=== PATIENT | female | born 1940 | race Caucasian/White ===

== ENCOUNTER → 2017-05-02 | Outpatient (CLI) | payer MEDICARE, OTHER ==
[~2017-05-02] MED LIST: ACYCLOVIR 400400 MG PO; ADULT LOW DOSE81 MG PO; AMITRIPTYLINE; BENTYL; BENTYL 20 MG TA20 M1 PO; CEFTIN500 MG PO; CELEXA; CELEXA 20 MG TA20 M1 PO; CIPROFLOXACIN500 M1 PO; COLACE100 MG PO; CRESTOR; CRESTOR20 MG PO; ELAVIL 25 MG PO; ELIQUIS2.5 MG PO; FISHOIL; FLAGYL500 MG PO; FLONASE 0.05%50 MCG NASAL; FOLIC ACID; FOLIC ACID1 MG PO; LIPITOR 20 MG T20 M1 PO; MACROBID 100 M100 M2 PO; METAMUCIL0.52 GM PO; MOBIC15 MG PO; NORCO 7.5-3251 EACH PO; OXYCODONE HCL 55 MG PO; PROMETHAZINE/C118 ML PO; SUPER B WITH V1 EACH PO; SYNTHROID88 MCG PO; TRANSDERM-SCOP1 EACH TD; TYLENOL EXTRA500 MG PO; VITAMIN D32000 UNIT PO
== END ==
LOC: M.MRI 10:56
DX: S43.401A Unspecified sprain of right shoulder joint, initial encounter (principal); M75.101 Unspecified rotator cuff tear or rupture of right shoulder, not specified as traumatic; M19.011 Primary osteoarthritis, right shoulder; M75.51 Bursitis of right shoulder; X58.XXXA Exposure to other specified factors, initial encounter; Y93.89 Activity, other specified; Y92.89 Other specified places as the place of occurrence of the external cause; Y99.8 Other external cause status

== ENCOUNTER 2017-08-28 08:01 | Inpatient (IN) | payer MEDICARE, OTHER ==
[2017-08-17 08:59] LABS: APTT 23.7 Seconds (25.0-31.3); PROTIME 9.8 Seconds (9.20-11.50)
[2017-08-17 09:07] LABS: ALBUMIN 3.9 g/dL (3.4-5.0); CREATININE 0.8 mg/dL (0.6-1.3); POTASSIUM 3.5 mmol/L (3.5-5.1); TOTAL BILIRUBIN 0.7 mg/dL (<0.1-1.0); TOTAL PROTEIN 7.4 g/dL (6.4-8.2)
[2017-08-17 09:42] LABS: ESR (SEDRATE) 3 mm/hr (0-30)
[2017-08-17 09:44] LABS: ABSOLUTE BASOPHILS 0.1 thou/uL (0.0-0.2); ABSOLUTE EOSINOPHILS 0.2 thou/uL (0.0-0.7); ABSOLUTE LYMPHOCYTES 2.3 thou/uL (0.8-5.3); ABSOLUTE MONOCYTES 0.7 thou/uL (0.0-1.2); ABSOLUTE NEUTROPHILS 6.6 thou/uL (1.6-8.1); BASOPHILS 0.6 %; EOSINOPHILS 1.7 %; HEMATOCRIT 44.5 % (37.0-47.0); HEMOGLOBIN 15.2 gm/dL (12.0-15.0); LYMPHOCYTES 23.2 %; MCH 31.8 pg (26.0-34.0); MCHC 34.2 g/dL (28.0-37.0); NUCLEATED RBCS 0 /100WBC; PLATELET COUNT* 422 thou/uL (150-400); POLYS 67.5 %; RBC 4.78 mil/uL (4.20-5.00); RDW-CV 12.8 % (10.5-14.5); WBC 9.7 thou/uL (4.0-11.0)
--- NOTE | 2017-08-17 14:05 | EKG ---
[place] [address] ELECTROCARDIOGRAM REPORT Name: CHELO URBINA Room: PRE IN [facility]#: [id number] Admission: Attend Phys: Bruno Watson Discharge: Date of : 44 Report #: [id number] THIS REPORT FOR: //name// [facility] Test Date: 2017-08-17 Test Time: 09:07:06 Pat Name: CHELO URBINA Department: Room: Gender: F Table Cover Folder: : 1940 Requested By: Edwin May Order Number: [id number] Reading MD: Luis Miguel Oliva Measurements Intervals Hooker Rate: 63 P: 47 CO: 135 QRS: 48 QRSD: 102 T: 47 QT: 421 QTc: 431 Interpretive Statements Sinus rhythm Abnormal R-wave progression, early transition Nonspecific T abnormalities, anterior leads Compared to ECG 06/23/2012 20:43:38 Sinus tachycardia no longer present T-wave abnormality still present Electronically Signed On 08-17-2017 14:05:23 CDT by Luis Miguel Oliva [email or web address] <ELECTRONICALLY SIGNED> By: Luis Miguel Oliva MD, [facility] 08/17/17 1405 [id number] Luis Miguel Oliva MD, [facility] /EPI
[2017-08-18 02:10] LABS: GLYCOHEMOGLOBIN (HGB A1C) 5.5 % (4.8-5.6)
[~2017-08-28] VITALS: Ht 157.5 cm; Wt 61.2 kg
[~2017-08-28 08:01] MED LIST changes: -COLACE100 MG PO; -ELIQUIS2.5 MG PO; -MACROBID 100 M100 M2 PO; -OXYCODONE HCL 55 MG PO; -TYLENOL EXTRA500 MG PO
[2017-08-28] MEDS ORDERED: TYLENOL EXTRA500 MG PO (10:01)
[2017-08-28 10:30] VITALS: BP 128/76
[2017-08-28 15:00] VITALS: BP 135/66
[2017-08-28 16:27] VITALS: BP 126/65
--- NOTE | 2017-08-28 18:48 | NUR ---
ASSUMED CARES OF PT AT 1440 FROM PACU. PT TRK PER DR. TRAMMELL. PT IN BED, BED IN LOW LOCKED POSITION, CALL BUTTON AND PERSONAL ITEMS PLACED IN PT REACH. PT A&O X4, LCTAB, VSS ON 3L 02 NC NOT WORN AT HOME, PLACED ON IN PACU R/T DESTAT POST OP. PAIN CONTROLLED, NAUSEA DIFFICULT TO CONTROL WITH ZOFRAN AND SCOPOLAMINE PATCH BEHIND RIGHT EAR. PT GIVEN COLD MOIST CLOTHS ON HEAD AND NECK/FACE. PT TO AMBULATE EARLY. PT REMAINED IN BED THIS SHIFT POST OP R/T NAUSEA/VOMITING. PT LIVES WITH SON AND GRANDSON, SAFE ENVIRONMENT. SKIN INTACT, SCATTERED BRUISING AND SCARS. IV IN LFA 20 GAUGE INFUSING 1/2 NS 75 ML/HR, TOLERATING. ICE PACK ON RIGHT KNEE, CAREN HOSE AND CALF SCD'S IN PLACE/ACTIVE. VS Q4 HOURS FOR 24 HOURS THEN Q6 HOURS. LAST BM THIS MORNING PRIOR TO SURGERY. CONSULTS OT, PT, RT, DR. TRAMMELL, MEDICINE. REGULAR DIET. HOURLY ROUNDING COMPLETED. WILL GIVE REPORT TO FLOUR INSPECTOR FOR CONTINUED CARES.
[2017-08-29] VITALS: BP 115/65
[2017-08-29 03:56] LABS: HEMATOCRIT 35.8 % (37.0-47.0); HEMOGLOBIN 12.1 gm/dL (12.0-15.0); MCH 31.3 pg (26.0-34.0); MCHC 33.8 g/dL (28.0-37.0); MCV 92.7 fL (80.0-100.0); MPV 8.1 fl. (7.2-11.1); RBC 3.86 mil/uL (4.20-5.00); RDW-CV 12.7 % (10.5-14.5); WBC 20.1 thou/uL (4.0-11.0)
[2017-08-29 04:18] VITALS: BP 101/58
[2017-08-29 04:37] LABS: CREATININE 0.7 mg/dL (0.6-1.3); MAGNESIUM 1.8 mg/dL (1.8-2.4); POTASSIUM 4.5 mmol/L (3.5-5.1)
[2017-08-29 08:29] VITALS: BP 102/58
--- NOTE | 2017-08-29 08:31 | NUR ---
PATIENT HAS RESTLESS AT TIMES DURING THE NIGHT. NAUSEA MEDICATION GIVEN AND CHARTED. PAIN MEDICATION GIVEN AND CHARTED. VSS ON 3L 02 AND CAPNO. IV IN LEFT FOREARM-SL. DRESSING TO RIGHT KNEE IS C/D/I, CAREN RUSSELL AND SCD'S IN PLACE. PATIENT URINATING ADEQUATELY. PATIENT INSTRUCTED TO USE CALL LIGHT WHEN NEEDING ASSISTANCE. HOURLY ROUNDS MADE. WILL CONTINUE WITH PLAN OF CARE AND NURSING TO MONITOR.
[2017-08-29 16:07] VITALS: BP 102/46
--- NOTE | 2017-08-29 16:09 | NUR ---
MET WITH PT. SHE HAS BEEN VERY NAUSEATED TODAY. SHE DOES PLAN TO GO HOME AT DISCHARGE. HER SON,INÉS WILL BE STAYING WITH HER. SHE HAS A WALKER TO USE AT HOME. SHE WOULD LIKE TO USE [facility] AND THEN GO TO OUTPT.THERAPY AT [facility] IN [place]. PT.IS NORMALLY INDEPENDENT AT HOME.
[2017-08-29 20:30] VITALS: BP 101/40
[2017-08-30 00:42] VITALS: BP 103/42
[2017-08-30 04:00] VITALS: BP 110/46
[2017-08-30 04:49] LABS: HEMATOCRIT 30.1 % (37.0-47.0); HEMOGLOBIN 10.4 gm/dL (12.0-15.0); MCH 31.7 pg (26.0-34.0); MCHC 34.4 g/dL (28.0-37.0); MCV 92.2 fL (80.0-100.0); MPV 8.3 fl. (7.2-11.1); RBC 3.26 mil/uL (4.20-5.00); RDW-CV 12.8 % (10.5-14.5); WBC 14.2 thou/uL (4.0-11.0)
[2017-08-30 05:00] LABS: CALCIUM 8.5 mg/dL (8.5-10.1); CREATININE 0.7 mg/dL (0.6-1.3); POTASSIUM 4.2 mmol/L (3.5-5.1)
--- NOTE | 2017-08-30 05:52 | NUR ---
PT SLEPT AT INTERVALS DURING THE NIGHT, PT HAD NAUSEA AND DRY HEAVING LAST NIGHT, DID NOT WANT ORAL MEDICATIONS, IV PAIN AND NAUSEA MEDICATIONS PER REQUEST, UP WITH ASSIST TO THE BSC, SCD'S ON, CALL LIGHT IN REACH, BED ALARM ON FOR SAFETY, WILL CONTINUE TO MONITOR
[2017-08-30 08:35] VITALS: BP 112/47
[2017-08-30 12:02] VITALS: BP 112/47
--- NOTE | 2017-08-30 15:37 | NUR ---
DISCUSSED WITH P.T. RE: POTENTIAL NEED FOR SNF STAY. PT. IS CURRENTLY BORDERLINE GOING HOME WITH HOME HEALTH VS. NEED FOR SNF STAY. WILL ASSESS NEED FOR O.T. EVAL WITH P.T. TOMORROW.
--- NOTE | 2017-08-30 15:43 | NUR ---
TALKED WITH PHYSICAL THERAPIST RE: NEED FOR O.T. EVAL. PT. MAY POSSIBLY NEED TO GO TO SNF TOMORROW. O.T. WILL EVALUATE PT. TOMORROW MORNING.
--- NOTE | 2017-08-30 16:57 | NUR ---
SHIFT NOTE - PT UP TO CHAIR THIS AM FOR 2-3 HOURS THIS AM. TOLERATED WELL. TOLERATED TRANSFER WITH MOD ASSIST OF ONE. PT ABLE TO TOLERATE WITH FULL WEIGHT BEARING TO RIGHT KNEE. PT TOLERATING PO PAIN MEDS WELL.
[2017-08-30 17:23] VITALS: BP 113/58
[2017-08-30 19:11] LABS: URINE BILIRUBIN NEGATIVE (Negative); URINE BLOOD TRACE (Negative); URINE CLARITY CLEAR; URINE COLOR YELLOW; URINE GLUCOSE-RANDOM NEGATIVE (Negative); URINE KETONES NEGATIVE (Negative); URINE NITRITE-REFLEX NEGATIVE (Negative); URINE PROTEIN NEGATIVE (Negative); URINE SPECIFIC GRAVITY >= 1.030 (1.005-1.030); URINE UROBILINOGEN 0.2 E.U./dl (0.2-1.0)
[2017-08-30 19:12] LABS: URINE LEUKOCYTES-REFLEX 2+ (Negative)
[2017-08-30 19:59] LABS: BACTERIA-REFLEX 1-9 Few /HPF (None Seen); CRYSTALS None Seen /LPF (None Seen); HYALINE CASTS 0-3 Few /LPF (None Seen); MUCUS 4-6 Moderate strn/LPF (None Seen); RENAL EPITHELIAL CELLS 0-3 Few /LPF (None Seen); SQUAMOUS 4-10 Moderate /LPF (0-3); URINE RBC 3-10 Few /HPF (0-2)
[2017-08-30 20:00] VITALS: BP 109/49
[2017-08-31 00:45] VITALS: BP 102/48
[2017-08-31 04:26] VITALS: BP 101/50
--- NOTE | 2017-08-31 04:34 | NUR ---
PATIENT RESTING QUIETLY THIS AM ON HOURLY ROUNDS. UP WITH ASSIST X1 TO BSC. MEDICATED FOR PAIN WITH GOOD EFFECT REPORTED. DRESSING TO RIGHT KNEE IS CLEAN, DRY AND INTACT WITH ICE PACK IN PLACE. VITALS STABLE. WILL CONTINUE TO MONITOR.
[2017-08-31 08:00] VITALS: BP 101/36
--- NOTE | 2017-08-31 12:00 | NUR ---
SPOKE WITH PT.ABOUT THERAPIST RECOMMENDATION FOR SNF. SHE IS AGREEABLE BUT SAID HER SON WILL BE MAD BECAUSE SHE WON'T BE ABLE TO TAKE CARE OF HIS 8 Y.O.SON. DISCUSSED WITH HER THAT EVEN IF SHE WAS HOME SHE WOULD NOT BE ABLE TO CARE FOR HIM AFTER HAVING SURGERY. SHE SAID I KNOW THAT BUT MY SON DOESN'T. SHE WOULD LIKE TO GO TO [facility] IN [place] SO IT WOULD BE CLOSE TO WHERE SHE LIVES. SHE HOPES THAT SHE IS ONLY THERE 1-2 WEEKS. REFERRAL INFORMATION PRINTED OUT BY CORRIE GUTIERREZ AND FAXED TO [facility] IN [place].
[2017-08-31 15:49] VITALS: BP 111/51
--- NOTE | 2017-08-31 16:07 | NUR ---
Edouard FROM [facility] CALLED. SHE SAID THEY WILL NEED TO RUN PT.'S MEDICARE DAYS. IF THESE CHECK OUT OK THEY CAN MOST LIKELY ACCEPT PT.TOMORROW TO A SKILLED BED.
--- NOTE | 2017-08-31 17:25 | NUR ---
ALERT AND ORIENTED X4. UP WITH ASSIST X1 WITH WALKER AND GAIT BELT. IV IS PATENT AND SALINE LOCKED. PAIN BEING MANAGED WITH PO PAIN MEDICATION. DENIES NAUSEA. TOLERATING REGULAR DIET. ATTENDED PHYSICAL THERAPY TWICE THIS SHIFT. CAREN HOSE IN PLACE BILATERALLY. VSS ON ROOM AIR. HOURLY ROUNDS HAVE BEEN MAINTAINED THROUGHOUT SHIFT. CALL LIGHT IS WITHIN REACH.NURSING WILL CONTINUE TO MONITOR.
[2017-08-31 20:00] VITALS: BP 116/40
[2017-09-01 04:17] VITALS: BP 106/33
--- NOTE | 2017-09-01 04:45 | NUR ---
PATIENT ALERT AND ORIENTED X4. UP WITH ASSIST X1. PAIN CONTROLLED WITH ORAL MEDICATIONS. DRESSING TO RIGHT KNEE IS CLEAN, DRY AND INTACT. VITALS STABLE ON ROOM AIR. WILL CONTINUE TO MONITOR.
[2017-09-01 04:56] LABS: HEMATOCRIT 27.6 % (37.0-47.0); HEMOGLOBIN 9.5 gm/dL (12.0-15.0); MCH 31.9 pg (26.0-34.0); MCHC 34.6 g/dL (28.0-37.0); MCV 92.3 fL (80.0-100.0); MPV 8.2 fl. (7.2-11.1); RBC 2.99 mil/uL (4.20-5.00); RDW-CV 12.7 % (10.5-14.5); WBC 10.4 thou/uL (4.0-11.0)
[2017-09-01 05:11] LABS: CALCIUM 8.3 mg/dL (8.5-10.1); CREATININE 0.7 mg/dL (0.6-1.3); POTASSIUM 4.3 mmol/L (3.5-5.1)
[2017-09-01 07:45] VITALS: BP 108/38
--- NOTE | 2017-09-01 11:23 | NUR ---
[facility] CALLED AND SAID THEY CAN ACCEPT PT.TO A SKILLED BED TODAY. INFORMED HER N'T MADE ROUNDS YET BUT SHOULD DO SO WITHIN THE HR. THEIR WC VAN CAN PICK PT.UP AT 1400. NOTIFIED PT.OF ABOVE.
[2017-09-01] MEDS ORDERED: COLACE100 MG PO (11:40)
[2017-09-01] MEDS ORDERED: ELIQUIS2.5 MG PO (12:42)
[2017-09-01] MEDS ORDERED: OXYCODONE HCL 55 MG PO (12:46)
[2017-09-01] MEDS ORDERED: MACROBID 100 M100 M2 PO (12:48)
[2017-09-01 12:49] VITALS: BP 112/47
--- NOTE | 2017-09-01 14:02 | NUR ---
FAXED PTS DC ORDERS/ ORTHO ORDERS TO [facility].SPOKE WITH FACILITY. DC TODAY .
[2017-09-01 15:37] VITALS: BP 112/47
--- NOTE | 2017-09-01 15:38 | NUR ---
PATIENT LEFT UNIT AT 1400. ALERT AND ORIENTED X4. UP WITH ASSIST X1 WITH WALKER AND GAIT BELT. PAIN BEING MANAGED WITH PO PAIN MEDICATION. DENIES NAUSEA. ATTENDED PHYSICAL THERAPY TWICE THIS SHIFT. CAREN HOSE IN PLACE BILATERALLY. ALL PERSONAL ITEMS LEFT WITH PATIENT. DISCHARGE INSTRUCTIONS, PRESCRIPTIONS, AND NEW MEDICATION INFORMATION SENT WITH PATIENT TO FACILITY. VSS ON ROOM AIR. HOURLY ROUNDS HAVE BEEN MAINTAINED THROUGHOUT SHIFT. LEFT WITH TRANSPORTER VIA WHEELCHAIR VAN.
--- NOTE | 2017-09-18 13:25 | OP ---
[address] [address] OPERATIVE REPORT Name: CIARACHELO ROJAS Room: [address] M.R.#: [id number] Admission: 08/28/17 Attend Phys: Bruno Watson Discharge: 09/01/17 Date of : 44 Report #: [id number] THIS REPORT FOR: //name// CC: Patrick Dougherty DICTATED BY: Caden Rosales DO DATE OF SERVICE: 08/28/2017 PREOPERATIVE DIAGNOSIS: Right knee degenerative joint disease. POSTOPERATIVE DIAGNOSIS: Right knee degenerative joint disease. PROCEDURE: Right total knee arthroplasty. SURGEON: Edwni May DO. CORPORATE RELATIONS MANAGER: Caden Rosales DO SECOND CORPORATE RELATIONS MANAGER: Edgar Schofield DO ANESTHESIA: General, regional block and local. ESTIMATED BLOOD LOSS: 150 mL. COMPLICATIONS: None. SPECIMENS: None. ANTIBIOTICS: Clindamycin 600 mg IV. CONDITION: The patient is stable to PACU. ORTHOPEDIC IMPLANTS: 1. [employer]ins [employer] Legion size 5 PS femur, Oxinium narrow. 2. Dobbins [employer] Romina 2 right tibial base plate size 4. 3. [employer] Legion PS XLPE 11-mm articular insert. 4. One bag Palacos bone cement. INDICATIONS FOR PROCEDURE: The patient is a pleasant 76-year-old female who has had increasing pain, difficulty with activities of daily living and a decrease in quality of life. She has advanced arthritis on x-ray with [id number] apposition most noted in the medial compartment. She has failed conservative measures in the form of activity modification. She is of appropriate weight. She has done a home exercise program, had steroid injections, all of which have [address] [address] OPERATIVE REPORT Name: CHELO URBINA ROJAS Room: [address] IN ..#: [id number] Admission: 08/28/17 Attend Phys: Bruno Watson Discharge: 09/01/17 Date of : 44 Report #: [id number] failed to provide relief. It was recommended she be a candidate for a total knee arthroplasty. All risks, benefits, complications and indications were reviewed, the patient wished to proceed. DESCRIPTION OF PROCEDURE: The patient was brought to the operative suite and placed supine on a well-padded table, given the benefits of general anesthesia, had a regional pain block preoperatively. Right lower extremity was sterilely prepped and draped in standard fashion. Timeout was taken to ensure correct patient, procedure, operative site and that clindamycin had been given 600 mg IV preoperatively, everybody in the room was in agreement. At that time, a 10 blade scalpel was used to make a skin incision through skin and subcutaneous tissue. A second 10 blade was used to perform a medial parapatellar arthrotomy. Anterior horns of medial and lateral menisci were excised as well as excess Hoffa's fat pad. Patella was everted, knee was brought into deep flexion. Drill was used to find the intramedullary canal of the femur. A 5-degree valgus cut was used to make an intramedullary distal femoral cutting guide with a 10-mm resection. Following this, the extramedullary tibial guide was pinned into place on the tibial crest in line with the medial third of the tibial tubercle. A 9-mm resection was made off the high lateral side. Once this was done, we then sized our femur to a size 5, used a 4-in-1 cutting block. Once the anterior and posterior cuts followed by anterior, posterior chamfer cuts were made, we then sized her tibia to a size 4, put a size 5 femur. We then prepared our box cut with the drill and punch and trialed a size 11 poly. We had excellent tracking with the patella as well as external rotation of her components and excellent varus valgus balance with excellent mid-flexion stability. We are very pleased with the results of the trial components. We removed the articular insert. We used the drill and punch and the femur to prepare that. All the trial implants were then removed. The rest of the menisci were excised with a Bovie electrocautery as well as ACL and PCL remnants. The knee was then pulsatile lavaged, cement was mixed at the back table. We then cemented first at the tibia followed by the femur. Once these were cemented in place, we pulled our final size 11 articular insert PS. We implanted this, heard a palpable click. Once this was done, we had excellent stability through full arc of motion with equal varus valgus stress and excellent patellar tracking. We then irrigated the knee once more, used 1 gram of vancomycin powder. We then closed the capsule with #1 Vicryl in [id number] fashion followed by running #1 Stratafix. Knee was irrigated once more subcutaneously. The skin was approximated with 2-0 Monocryl followed by a running 3-0 Stratafix and Dermabond glue. Mepilex dressing and CAREN hose were applied. The patient was awoken from anesthesia and brought to the PACU in stable condition. <ELECTRONICALLY SIGNED> By: Edwin May, 09/18/17 1325 [id number] Germán May DO /nt
== END 2017-09-01 14:30 | DRG 470 ==
LOC: M.PRE 08:01 → M.ORTHSURG 09:46 → M.TBA 09:46 → M.PRE 09:57 → M.TBA 13:20 → M.ORTHSURG 14:00
PROVIDERS: Internal Medicine; Orthopaedic Surgery; ADMIT Internal Medicine
PROC: 0SRC069 Replacement of Right Knee Joint with Oxidized Zirconium on Polyethylene Synthetic Substitute, Cemented, Open Approach (ICD-10-PCS; principal; 2017-08-28)
DX: M17.11 Unilateral primary osteoarthritis, right knee (principal); N39.0 Urinary tract infection, site not specified; E03.9 Hypothyroidism, unspecified; E78.00 Pure hypercholesterolemia, unspecified; R11.2 Nausea with vomiting, unspecified; K58.9 Irritable bowel syndrome, unspecified; Z95.1 Presence of aortocoronary bypass graft; Z90.49 Acquired absence of other specified parts of digestive tract; Z79.899 Other long term (current) drug therapy; Z88.0 Allergy status to penicillin; Z88.8 Allergy status to other drugs, medicaments and biological substances; Z88.1 Allergy status to other antibiotic agents; Z91.040 Latex allergy status

== ENCOUNTER → 2018-10-16 | Outpatient (CLI) | payer MEDICARE, OTHER ==
[~2018-10-16] MED LIST changes: +COLACE100 MG PO; +ELIQUIS2.5 MG PO; +MACROBID 100 M100 M2 PO; +OXYCODONE HCL 55 MG PO; +TYLENOL EXTRA500 MG PO
== END ==
LOC: M.MRI 13:29
DX: S43.401A Unspecified sprain of right shoulder joint, initial encounter (principal); M75.101 Unspecified rotator cuff tear or rupture of right shoulder, not specified as traumatic; M75.102 Unspecified rotator cuff tear or rupture of left shoulder, not specified as traumatic; M19.011 Primary osteoarthritis, right shoulder; M19.012 Primary osteoarthritis, left shoulder; M25.712 Osteophyte, left shoulder; X58.XXXA Exposure to other specified factors, initial encounter; Y93.89 Activity, other specified; Y92.89 Other specified places as the place of occurrence of the external cause; Y99.8 Other external cause status

== ENCOUNTER → 2019-10-14 | Outpatient (CLI) | payer MEDICARE, OTHER | LOC: M.MRI 10-03 16:37 | PROVIDERS: ATTEND Physician Assistant | DX: S46.111A Strain of muscle, fascia and tendon of long head of biceps, right arm, initial encounter (principal); S46.121A Laceration of muscle, fascia and tendon of long head of biceps, right arm, initial encounter; M75.111 Incomplete rotator cuff tear or rupture of right shoulder, not specified as traumatic; M19.011 Primary osteoarthritis, right shoulder; X58.XXXA Exposure to other specified factors, initial encounter; Y93.89 Activity, other specified; Y92.89 Other specified places as the place of occurrence of the external cause; Y99.8 Other external cause status ==

== ENCOUNTER 2020-03-03 09:13 | Observation (INO) | payer MEDICARE, OTHER ==
[~2020-03-03] VITALS: Ht 157.5 cm; Wt 59.0 kg
[~2020-03-03 09:13] MED LIST changes: -TYLENOL325 MG PO
[2020-03-09 10:48] VITALS: BP 170/85
[2020-03-09 19:41] VITALS: BP 124/63
[2020-03-09 22:11] VITALS: BP 110/52
[2020-03-10 03:36] VITALS: BP 96/58
--- NOTE | 2020-03-10 05:46 | NUR ---
PT A&OX4, VSS ON 2L NC, PT UP WITH ASSIST, SR ON TELE MONITOR, PAIN WELL CONTROLED ON PO PAIN MED, WILL CONTINUE TO MONITOR.
[2020-03-10 08:16] VITALS: BP 103/48
[2020-03-10] MEDS ORDERED: TYLENOL325 MG PO (11:19)
[2020-03-10 12:15] VITALS: BP 103/48
[2020-03-10 12:22] VITALS: BP 103/48
--- NOTE | 2020-03-10 12:47 | NUR ---
Pt is A&O. Resides at home with family. Independent. Pt has a walker that she can use for mobility. Hx of HH. Hx of skilled at [facility]. Per OT, recommending HH, PT cleared. Pt and son in agreement with , faxed referral to [facility], they will run insurance to see if they can go to Pt's zip code, awaiting decision. Following.
[2020-03-10 12:53] VITALS: BP 103/48
--- NOTE | 2020-03-12 11:23 | OP ---
[address] [address] OPERATIVE REPORT Name: CHELO URBINA Room: [address] Catia Mas#: [id number] Admission: 03/09/20 Attend Phys: Bruno Watson Discharge: 03/10/20 Date of : 44 Report #: [id number] THIS REPORT FOR: cc: Patrick Veras MD, Ram MD ~ Edwin May DO DICTATED BY: Mainor Richard DO DATE OF SERVICE: 03/09/2020 PREOPERATIVE DIAGNOSIS: Right shoulder rotator cuff tear arthropathy. POSTOPERATIVE DIAGNOSIS: Right shoulder rotator cuff tear arthropathy. PROCEDURE PERFORMED: Right reverse total shoulder arthroplasty utilizing the [employer] comprehensive reverse total shoulder system with the following components: 1. A size 11 mini humeral stem. 2. A size 25 mm mini baseplate with a 20 mm central screw. 3. A 25 mm baseplate locking screw and a 30 mm nonlocking screw. 4. A 36 mm glenosphere with a B offset. 5. +0 offset, 40 mm humeral tray with standard vitamin E highly cross-linked polyethylene. SURGEON: Edwin May DO CARTRIDGE MAKER: Leslie Onofre PA-C. SECOND PLANT CARE WORKER: Mainor Richard DO ANESTHESIA: General with interscalene nerve block. ESTIMATED BLOOD LOSS: 75 mL. ANTIBIOTICS: 1 gram vancomycin IV preoperatively and 1 gram vancomycin powder intraoperatively. COMPLICATIONS: None. SPECIMENS: None. CONDITION: The patient is stable to PACU. INDICATIONS FOR PROCEDURE: This is a pleasant 79-year-old female who has been seen and examined in the outpatient orthopedic clinic [place] [address] OPERATIVE REPORT Name: CHELO URBINA ROJAS Room: [address] Catia Mas#: [id number] Admission: 03/09/20 Attend Phys: Bruno Watson Discharge: 03/10/20 Date of : 44 Report #: [id number] shoulder pain. Radiographs were obtained, which demonstrated a high riding humeral head as well as glenohumeral degenerative joint disease. She did have a prior MRI, which showed full-thickness rotator cuff tear. Treatment options were discussed in detail with the patient. She did try and failed conservative treatment including activity modification, injections. We discussed arthroplasty with the patient. Due to her not having a functioning rotator cuff, we did recommend a reverse total shoulder arthroplasty. The risks, benefits, alternatives, complications were discussed and the patient wished to proceed. DESCRIPTION OF PROCEDURE: The patient was seen and examined in the preoperative holding area. The correct operative extremity was marked. Written consent was obtained. The patient was transferred to the operating room and placed supine on the operating table. She was given the benefit of general anesthesia. She was then placed in the beach chair position. All bony prominences were well padded and she was well secured. The right upper extremity was then prepped and draped in the usual sterile fashion. Timeout was performed to verify the correct patient, procedure and operative extremity and all were in agreement. Next, incision was made to right shoulder directly over the deltopectoral interval. Electrocautery dissection was carried through the subcutaneous layer, exposing the interval. The cephalic vein was identified and bluntly dissected. This was retracted laterally with the deltoid. Appropriate retractors were placed. The clavipectoral fascia was then incised and the conjoined tendon was lightly retracted medially and the deltoid laterally. Next, the bicipital groove was identified. This was incised and the rotator cuff interval was incised exposing the glenohumeral joint. Next, the subscapularis tendon was then dissected off of the lesser tuberosity in a peel back fashion completely around the inferior medial neck exposing the humeral head. The humeral head was then able to be dislocated anteriorly. Next, the humerus was reamed up to a size 11 mm reamer. The 11 mm reamer was then left in the humerus and the cutting guide was then attached and pinned into position at 30 degrees of retroversion. The humeral head cut was then performed in the standard fashion. Excess bone was removed. The humerus was then broached up to a size 11 stem. It was noted to have seat nicely and have excellent stability. The final size 11 humeral stem was impacted into position. Attention was then turned to the glenoid. The glenoid labrum was excised. The [employer] 3D CT-guided glenoid block was then inserted and was noted to seat nicely on the glenoid. The central guide pin was then drilled through this 3D pertinent block. Next, the glenoid was reamed. The glenoid baseplate was then inserted and noted to have excellent fixation. The size 20 mm locking screw was then placed and confirmed to be fully seated. Next, a 25 mm locking screw and 30 mm nonlocking screw were placed into the glenoid baseplate. The 36 mm glenosphere with a B offset was then placed and impacted into position. Various trials were placed. Next, the final +0 offset humeral tray as well as the standard size polyethylene component was then assembled and impacted onto the humeral stem[place] [address] OPERATIVE REPORT Name: CHELO URBINA Room: [address] Chace#: [id number] Admission: 03/09/20 Attend Phys: Bruno Watson Discharge: 03/10/20 Date of : 44 Report #: [id number] was reduced. There was noted to be appropriate tension on the conjoined tendon at neutral. The shoulder had full range of motion. The shoulder was stable with no dislocation or instability. One gram vancomycin powder was then inserted. Prior to doing that, the shoulder was thoroughly irrigated with normal saline. The deltopectoral interval was closed with a #1 Vicryl in interrupted fsdxth-yb-cyhud fashion. 2-0 Monocryl was used subcutaneously followed by 3-0 Stratafix on the skin. The skin glue was applied. Sterile dressing was applied. She was then placed in a sling. She was then awakened from anesthesia and transferred to PACU in stable condition. The patient tolerated the procedure well. There were no complications. <ELECTRONICALLY SIGNED> By: Edwin May DO 03/12/20 1123 [id number] May DO /nt
== END 2020-03-10 14:00 | disposition home or self-care (01) ==
LOC: M.PRE → M.TBA 03-09 09:45 → M.2W 03-09 19:25
PROVIDERS: ADMIT Internal Medicine; ATTEND Internal Medicine
DX: M75.101 Unspecified rotator cuff tear or rupture of right shoulder, not specified as traumatic (principal); M19.011 Primary osteoarthritis, right shoulder; E03.9 Hypothyroidism, unspecified; Z79.899 Other long term (current) drug therapy

== ENCOUNTER → 2020-03-03 | Outpatient (CLI) | payer MEDICARE, OTHER ==
[~2020-03-03] MED LIST changes: +LEVOTHYROXINE75 MCG PO; +NORCO 10-325 T1 EACH PO; +TYLENOL325 MG PO
[2020-03-03 12:36] LABS: ABSOLUTE BASOPHILS 0.1 thou/uL (0.0-0.2); ABSOLUTE EOSINOPHILS 0.1 thou/uL (0.0-0.7); ABSOLUTE LYMPHOCYTES 2.4 thou/uL (0.8-5.3); ABSOLUTE MONOCYTES 0.6 thou/uL (0.0-1.2); ABSOLUTE NEUTROPHILS 8.1 thou/uL (1.6-8.1); EOSINOPHILS 0.7 %; HEMATOCRIT 41.7 % (37.0-47.0); HEMOGLOBIN 14.2 gm/dL (12.0-15.0); MCHC 33.9 g/dL (28.0-37.0); MCV 91.4 fL (80.0-100.0); MONOCYTES 5.2 %; MPV 6.8 fl. (7.2-11.1); NUCLEATED RBCS 0 /100WBC; PLATELET COUNT* 374 thou/uL (150-400); POLYS 72.1 %; RBC 4.56 mil/uL (4.20-5.00); RDW-CV 12.6 % (10.5-14.5); WBC 11.3 thou/uL (4.0-11.0)
[2020-03-03 12:47] LABS: APTT 24.4 Seconds (25.0-31.3); PROTIME 10.3 Seconds (9.20-11.50)
[2020-03-03 12:48] LABS: ALBUMIN 3.8 g/dL (3.4-5.0); CALCIUM 9.3 mg/dL (8.5-10.1); CREATININE 0.7 mg/dL (0.6-1.3); POTASSIUM 3.9 mmol/L (3.5-5.1); TOTAL BILIRUBIN 0.5 mg/dL (<0.1-1.0)
[2020-03-03 13:39] LABS: ESR (SEDRATE) 5 mm/hr (0-30)
== END ==
LOC: M.LAB 08:24
PROVIDERS: ATTEND Orthopaedic Surgery
DX: Z01.812 Encounter for preprocedural laboratory examination (principal); Z20.828 Contact with and (suspected) exposure to other viral communicable diseases; M19.011 Primary osteoarthritis, right shoulder

== ENCOUNTER → 2021-03-09 | Outpatient (CLI) | payer MEDICARE, OTHER ==
[~2021-03-09] MED LIST changes: +LIPITOR10 MG PO; +TYLENOL325 MG PO
== END ==
LOC: M.PC 11:14
PROVIDERS: ATTEND Anesthesiology Pain Medicine
DX: I25.10 Atherosclerotic heart disease of native coronary artery without angina pectoris (principal); B02.29 Other postherpetic nervous system involvement; E03.8 Other specified hypothyroidism; E78.5 Hyperlipidemia, unspecified; Z88.0 Allergy status to penicillin; Z88.8 Allergy status to other drugs, medicaments and biological substances; Z79.899 Other long term (current) drug therapy

== ENCOUNTER → 2021-04-13 | Outpatient (CLI) | payer MEDICARE, OTHER | LOC: M.PC 08:40 | PROVIDERS: ATTEND Anesthesiology Pain Medicine | DX: I25.10 Atherosclerotic heart disease of native coronary artery without angina pectoris (principal); B02.29 Other postherpetic nervous system involvement; E78.5 Hyperlipidemia, unspecified; E03.9 Hypothyroidism, unspecified; M19.011 Primary osteoarthritis, right shoulder; Z96.611 Presence of right artificial shoulder joint; Z88.0 Allergy status to penicillin; Z88.8 Allergy status to other drugs, medicaments and biological substances; Z79.899 Other long term (current) drug therapy ==